=== PATIENT | female | born 1960 | race Caucasian/White ===

== ENCOUNTER 2019-12-03 07:15 | Day surgery (SDC) | payer BC ==
[~2019-12-03] VITALS: Ht 157.5 cm; Wt 88.5 kg
[~2019-12-03 07:15] MED LIST: ATORVASTATIN CA20 MG PO; BACLOFEN10 MG PO; BENADRYL25 MG PO; COLACE100 MG PO; EFFEXOR XR150 MG PO; HYDROCHLOROTHIA25 MG PO; HYDROCODON-ACE1 EAC8 PO; IRBESARTAN150 MG PO; JANUMET XR 50-1 EACH PO; KLOR-CON 1010 MEQ; KLOR-CON 1010 MEQ PO; MAGNESIUM500 MG PO; NEXIUM20 MG PO; OMEGA 3 1,0001 EACH PO; SPIRONOLACTONE25 MG PO; SUCRALFATE1 GM PO; TRAZODONE HCL100 MG PO
--- NOTE | 2019-12-03 08:51 | NUR ---
12/03/19 0851 Marisol Montes 0844-PATIENT ARRIVED TO PACU ON 2L NC RR EVEN SLEEPING REACTIVE TO VERBAL STIMULI DENIES PAIN OR NAUSEA. ABDOMEN SOFT. IVF INFUSING. [id number]-[id number] 127. PATIENT AROUSES VERY DROWSY. DOZES BACK TO SLEEP. RR EVEN.
--- NOTE | 2019-12-03 17:32 | OR ---
[facility] [address], [place] [address] Signed DATE OF OPERATION: 12/03/2019 SURGEON: Blanca Heredia MD PREOPERATIVE DIAGNOSES: 1. Diabetic gastroparesis. 2. Tiny hiatal hernia. 3. Gastroesophageal reflux disease. 4. Vomiting. POSTOPERATIVE DIAGNOSES: 1. Tiny hiatal hernia. 2. Mild diffuse gastritis. 3. Benign proximal gastric polyps. PROCEDURES: Esophagogastroduodenoscopy with CLOtest and biopsies of the antrum, GE junction, mid esophagus, and polyps. ESTIMATED BLOOD LOSS: None. INDICATIONS: Phill is a 59-year-old female, who asked to see me for upper endoscopy. She has already had upper endoscopy in 2003 and 2015. She knows she has diabetic gastroparesis with a small hiatal hernia. She tried Reglan, but had side effects, therefore discontinued the medication. As expected, she has ongoing reflux symptoms. She also has some mild esophageal dysphagia. She has been using initially Prilosec and Nexium with good results. She can vomit if she bends over and ties her shoes. Chest x-ray in 2018 and 2019 did not show a gastric bubble behind the heart. In the meantime, she did have a barium swallow performed, and she did quite well. She has had her anterior neck fused. Her motility was fine. She has a very tiny hiatal hernia, but no reflux during the test. In the office, I gave her a pamphlet on upper endoscopy. We looked at that together in detail. I also gave her a pamphlet on acid reflux, and we will do it page by page. She understands upper endoscopy quite well. She understands there is risk including, but not limited to gas bloating, crampy abdominal pain, bleeding, perforation requiring surgery, and missed diagnosis. She had expressed understanding and wished to proceed. She did explain her nausea with anesthesia. She does very well with the scopolamine patch. We therefore provided that for her today along with some Zofran. She also understands the need for IV conscious sedation, she had expressed understanding Electronically Signed By: BLANCA HEREDIA MD 12/03/19 1732 PATIENT NAME: PHILL OWENS OPERATIVE REPORT DATE OF : 56 REPORT #: [id number] PHYSICIAN: BLNACA HEREDIA MD PCP: CALLIE HAYES PAC REPORT IS CONFIDENTIAL AND NOT TO BE RELEASED WITHOUT AUTHORIZATION [facility] [address], [place] [address] Signed and wished to proceed. DESCRIPTION OF PROCEDURE: Phill was taken into our endoscopy suite and placed in the supine semi-recumbent position. She was given a total of 7 mg of Versed and 100 mcg of fentanyl to cover the case. A bite block was utilized as well. The posterior oropharynx was anesthetized with lidocaine spray. The adult gastroscope was introduced and advanced all around into the third portion of the duodenum under direct visualization of camera without difficulty. The duodenum and pyloric channel were unremarkable. The stomach showed some mild diffuse erythematous changes. We took a biopsy of the antrum for CLOtest as well as pathologic review. There were no ulcerations in the pyloric bulb or the stomach. Upon retroflexion of scope, she does have just a very tiny hiatal hernia. She also has the expected benign-appearing gastric polyps in the proximal half of her stomach after using her proton pump inhibitors. The scope was withdrawn up through the area of the GE junction, which was compliant without stricture. There was no gastric or esophageal varices. Very minimal disruption to the Z-line. We went and took a biopsy right along the edge of the Z-line for pathologic review. There was no Mcelroy's mucosa and no distal esophagitis. The middle and upper esophagus appeared unremarkable. We took a biopsy of the midesophagus due to the history of mild esophageal dysphagia, although she did fine on her barium swallow. After this, the gas was suctioned out, the gastroscope was removed. We could see that the vocal cords and arytenoids were fine. Phill tolerated the procedure quite well. RECOMMENDATIONS: I will see Phill back in my office in 7 to 14 days. It appears that her symptoms are related to her diabetes and diabetic gastroparesis. Blanca Heredia MD ALB/MODL /[id number] cc: Blanca Heredia MD Copies: BLANCA HEREDIA MD Electronically Signed By: BLANCA HEREDIA MD 12/03/19 1732 PATIENT NAME: PHILL OWENS OPERATIVE REPORT DATE OF : 56 REPORT #: [id number] PHYSICIAN: BLANCA HEREDIA MD PCP: CALLIE HAYES PAC REPORT IS CONFIDENTIAL AND NOT TO BE RELEASED WITHOUT AUTHORIZATION [address] [address] Signed ~ Electronically Signed By: BLANCA HEREDIA MD 12/03/19 1732 PATIENT NAME: PHILL OWENS OPERATIVE REPORT DATE OF : 56 REPORT #: [id number] PHYSICIAN: BLANCA HEREDIA MD PCP: CALLIE HAYES PAC REPORT IS CONFIDENTIAL AND NOT TO BE RELEASED WITHOUT AUTHORIZATION
--- NOTE | 2019-12-04 16:52 | PATH ---
[facility] [address], [place] [address] Signed SPECIMEN(S): A ANTRUM SPECIMEN(S): B GASTRIC POLYP SPECIMEN(S): C GE JUNCTION SPECIMEN(S): D MIDDLE ESOPHAGUS SPECIMEN SOURCE: A. ANTRUM B. GASTRIC POLYP C. GE JUNCTION D. MIDDLE ESOPHAGUS CLINICAL HISTORY: Pre: Diabetic gastroparesis, acid reflux. Post: Mild gastritis, small hiatal hernia, gastric polyps. MICROSCOPIC DESCRIPTION: Histologic sections of all submitted blocks are examined by light microscopy. These findings, together with the gross examination, support the pathologic diagnosis. FINAL PATHOLOGIC DIAGNOSIS: A. Stomach, antrum, biopsy: - Antral mucosa with chronic, focally active gastritis. - Negative for Helicobacter organisms, see comment. - Negative for dysplasia or malignancy. B. Stomach, polyp, polypectomy: - Fundic gland polyp. C. Gastroesophageal junction, biopsy: - Squamocolumnar junctional mucosa with chronic inflammation and reactive epithelial changes, consistent with reflux esophagitis. - Negative for intestinal metaplasia, dysplasia, or malignancy. D. Esophagus, middle, biopsy: - Squamous mucosa with no histopathologic abnormality. - Negative for intestinal metaplasia, dysplasia, or malignancy. COMMENT: Regarding specimen A: An immunohistochemical stain (with appropriately staining controls) for H. pylori is negative for Helicobacter organisms. NAL:cml:C2NR GROSS DESCRIPTION: PATIENT NAME: PHILL OWENS PATHOLOGY DATE OF : 56 REPORT #: [id number] PHYSICIAN: [facility] PCP: CALLIE HAYES PAC REPORT IS CONFIDENTIAL AND NOT TO BE RELEASED WITHOUT AUTHORIZATION [facility] [address], [place] [address] Signed Four specimens are received in four containers, labeled "MM." A. The specimen, labeled "MM, antrum biopsy," is received in formalin and consists of one fragment of pink-watkins tissue (0.3 x 0.3 x 0.2 cm). The specimen is submitted entirely in cassette (A1). B. The specimen, labeled "MM, gastric polyp," is received in formalin and consists of one fragment of pink-watkins tissue (0.5 x 0.3 x 0.2 cm). The specimen is submitted entirely in cassette (B1). C. The specimen, labeled "MM, GE junction," is received in formalin and consists of one piece of pink-watkins tissue (0.5 x 0.2 x 0.1 cm). The specimen is submitted entirely in cassette (C1). D. The specimen, labeled "MM," and designated on the requisition "middle esophagus biopsy," is received in formalin and consists of one piece of pink-watkins tissue (0.4 x 0.2 x 0.1 cm). The specimen is submitted entirely in cassette (D1). AC (under the direct supervision of a pathologist) The Gross Description was prepared using a voice recognition system. The report was reviewed for accuracy; however, sound-alike word errors, addition and/or deletions may occur. If there is any question about this report, please contact Client Services. PERFORMING LABORATORY: The technical component was performed by [facility], [address] [place] [id number] (Senior Software Engineering Manager: Haley Lamar MD; CLIA# [id number]). [facility], [address] [address], [place] [address] (IA# [id number]). Diagnostician: Amanda Calzada MD Pathologist Electronically Signed 12/04/2019 Copies: ~ PATIENT NAME: PHILL OWENS PATHOLOGY DATE OF : 56 REPORT #: [id number] PHYSICIAN: [facility] PCP: CALLIE HAYES PAC REPORT IS CONFIDENTIAL AND NOT TO BE RELEASED WITHOUT AUTHORIZATION
== END 2019-12-03 09:25 | disposition home or self-care (01) ==
LOC: DS 07:15 → OPS 07:15 → DS 08:15 → OPS 09:25
PROVIDERS: Colon & Rectal Surgery
PROC: 0DB78ZX Excision of Stomach, Pylorus, Via Natural or Artificial Opening Endoscopic, Diagnostic (ICD-10-PCS; 2019-12-03)
PROC: 0DB68ZX Excision of Stomach, Via Natural or Artificial Opening Endoscopic, Diagnostic (ICD-10-PCS; 2019-12-03)
PROC: 0DB28ZX Excision of Middle Esophagus, Via Natural or Artificial Opening Endoscopic, Diagnostic (ICD-10-PCS; 2019-12-03)
PROC: 0DB48ZX Excision of Esophagogastric Junction, Via Natural or Artificial Opening Endoscopic, Diagnostic (ICD-10-PCS; principal; 2019-12-03 08:15)
DX: K29.50 Unspecified chronic gastritis without bleeding (principal); K31.7 Polyp of stomach and duodenum; K20.9 Esophagitis, unspecified; K21.9 Gastro-esophageal reflux disease without esophagitis; K44.9 Diaphragmatic hernia without obstruction or gangrene; E11.43 Type 2 diabetes mellitus with diabetic autonomic (poly)neuropathy; K31.84 Gastroparesis; Z79.899 Other long term (current) drug therapy
CPT/HCPCS: 86677; 99153; G0500; J2250; J2405; J3010; J7121